=== PATIENT | female | born 1965 | race Caucasian/White ===

== ENCOUNTER 2016-11-17 05:53 | Emergency (ER) | payer BC, OTHER ==
[~2016-11-17] VITALS: Ht 154.9 cm; Wt 63.5 kg
[2016-11-17 06:15] VITALS: Ht 154.9 cm; Wt 63.5 kg
[2016-11-17] MEDS ORDERED: HYDROmorphONE 1 MG/ML SYG IV STA (06:29)
[2016-11-17] MEDS ORDERED: ONDANSETRON 4 MG INJ IV STA (06:29)
[2016-11-17] MEDS ORDERED: SOD CHLORIDE 0.9% 1,000 ML IV ONE (06:30)
--- NOTE | 2016-11-17 06:37 | ERD ---
ER Documentation Chief Complaint Date/Time DATE: 11/17/16 TIME: 06:34 Chief Complaint c/o migraine, hx migraine,Imitrex inj administered to self at 0300 HPI 51-year-old female with history of migraines comes in with a headache that started yesterday at around 12 states that it is her typical migraine that is with photophobia, nausea, vomiting, severe, throbbing headache that she states is "all over" while pointing to her crown. It was gradual in onset. She reports that her last migraine that was this bad was in February when she went to [facility] and they had administered Imitrex. She tried giving herself Imitrex this morning at around 3 AM without any relief. She denies that this is a worse headache of her life. ROS All systems reviewed and are negative except as per history of present illness. Medications Home Meds Active Scripts Ondansetron (Ondansetron Odt) 4 Mg Tab.rapdis, 4 MG PO Q6H Y for NAUSEA AND/OR VOMITING, #20 TAB Prov:HANS JOEL PA-C 11/17/16 Acetamin/Butalbital/Caffeine* (Fioricet*) [id number] Tab, 1 TAB PO Q6H Y for PAIN, #30 TAB Prov:HANS JOEL PA-C 11/17/16 Allergies Allergies: Coded Allergies: Penicillins (Verified Allergy, Unknown, hives, 11/17/16) aspirin (Verified Allergy, Unknown, hives, 11/17/16) codeine (Verified Allergy, Unknown, hives, 11/17/16) PMhx/Soc History of Surgery: Yes ( x 3) Anesthesia Reaction: No Hx Neurological Disorder: Yes (chronic migraines) Hx Respiratory Disorders: No Hx Cardiac Disorders: No Hx Psychiatric Problems: No Hx Miscellaneous Medical Probl: No Hx Alcohol Use: No Hx Substance Use: No Hx Tobacco Use: No Smoking Status: Never smoker Physical Exam Vitals Vital Signs Date Time Temp Pulse Resp B/P Pulse Ox O2 Delivery O2 Flow Rate FiO2 11/17/16 06:15 97.2 78 18 125/74 99 Physical Exam General: Well-developed, well-nourished. The patient appears in no acute distress. HEENT: Head is normocephalic, atraumatic. No scleral icterus. Neck: Supple. Nontender. Lungs: Clear to auscultation. Normal air movement. Heart: Regular rate and rhythm. S1 and S2 are normal. No murmurs, gallops, or rubs. Abdomen: Soft, nontender, nondistended. Bowel sounds are normoactive. Extremities: No clubbing or cyanosis. Normal pulses. Moving extremities x 4. No weakness. Neurologic: Alert and oriented 3. No focal deficits. Cranial nerves II to XII grossly intact, speech and gait normal. Skin: Normal turgor. No rash or lesions. Results 24 hrs Current Medications Medications (Trade) Dose Ordered Sig/Yoana Route PRN Reason Start Time Stop Time Status Last Admin Dose Admin Hydromorphone HCl (Dilaudid) 1 mg ONCE STAT IV 11/17/16 06:29 11/17/16 06:30 DC 11/17/16 06:41 Ondansetron HCl 4 mg 4 mg ONCE STAT IV 11/17/16 06:29 11/17/16 06:30 DC 11/17/16 06:41 Sodium Chloride (NS) 1,000 ml @ 1,000 mls/hr Q1H ONCE IV 11/17/16 06:30 11/17/16 07:29 DC 11/17/16 06:41 Sumatriptan Succinate (Imitrex) 50 mg ONCE ONCE PO 11/17/16 08:30 11/17/16 08:31 Procedures/MDM ED course: Patient had an IV line established, she was given Dilaudid 1 mg IV with Zofran 4 mg IV and normal saline 1 L. She was also given Imitrex 50 mg by mouth. Medical decision making: This is a 51-year-old female comes in with a migraine headache, headache is consistent with past medical history of migraines. She also reports that this is similar to her headaches in terms of pattern in severity. This is not an awakening headache, patient states that this was a gradual onset. Suspicion for subarachnoid hemorrhage, temporal arteritis, intracranial hemorrhage, mass-effect, meningitis and encephalitis is low. She was given pain medication in the emergency department and responded well and is resting comfortably. I have asked her to follow-up with her primary care doctor. SUSAN report was done, shows that patient was seen at [facility] once before. The case was reviewed and discussed with Dr. Stevens who agrees with the plan of care including labs, treatment, and advanced imaging as appropriate. Patient's blood pressure was elevated (>120/80) but appears stable without evidence of hypertension emergency or urgency. The patient was counseled about the risks of hypertension and urged to pursue outpatient monitoring and therapy within a week with their primary care physician. Departure Diagnosis: Primary Impression: Headache Condition: Good HANS JOEL PA-C Nov 17, 2016 06:37
[2016-11-17] MEDS ORDERED: FIORICET PO (07:51)
[2016-11-17] MEDS ORDERED: ONDA4TAB14 PO (07:51)
[2016-11-17] MEDS ORDERED: SUMATRIPTAN 50 MG TAB PO ONE (08:30)
== END 2016-11-17 08:31 | disposition home or self-care (01) ==
LOC: FTE 05:53
DX: R51 Headache (principal); R40.2252 Coma scale, best verbal response, oriented, at arrival to emergency department; R11.2 Nausea with vomiting, unspecified; R40.2142 Coma scale, eyes open, spontaneous, at arrival to emergency department; R40.2362 Coma scale, best motor response, obeys commands, at arrival to emergency department
CPT/HCPCS: 96374; 96375; 99284; J1170; J2405; J7030

== ENCOUNTER 2018-02-20 04:06 | Emergency (ER) | END 2018-02-20 06:55 | disposition home or self-care (01) ==